=== PATIENT | female | born 1960 | race Two or more races ===

== ENCOUNTER 2017-09-13 00:45 | Emergency (ER) | payer SELFPAY ==
[~2017-09-13] VITALS: Ht 165.1 cm; Wt 81.6 kg
[2017-09-13 01:20] VITALS: BP 158/97
--- NOTE | 2017-09-13 02:00 | NUR ---
NOT IN LOBBY WHEN CALLED FOR ROOM ASSIGNMENT
--- NOTE | 2017-09-13 03:30 | NUR ---
STILL NOT IN LOBBY
--- NOTE | 2017-09-13 04:06 | NUR ---
NO ANSWER AND NOT IN LOBBY
== END 2017-09-13 04:13 | disposition left against medical advice (07) ==
LOC: ER 00:48
DX: R10.9 Unspecified abdominal pain (principal); Z53.21 Procedure and treatment not carried out due to patient leaving prior to being seen by health care provider
CPT/HCPCS: A4606; Z7610